=== PATIENT | female | born 1965 | race American Indian/Alaskan Native ===

== ENCOUNTER 2019-02-10 08:30 | Day surgery (SDC) | payer OTHER ==
[2019-02-10 09:05] VITALS: BMI 28.1
[2019-02-10] MEDS ORDERED: Lactated Ringer's 500 ML IV ONE (09:09)
[2019-02-10 09:35] VITALS: O2SAT 100
[2019-02-10] MEDS ORDERED: Midazolam 2 MG/2 ML VIAL ONE (10:55)
[2019-02-10] MEDS ORDERED: Propofol 10 mg/ml Inj (20 ML) ONE (10:56)
[2019-02-10 11:25] VITALS: RESP 17
[2019-02-10 11:41] VITALS: BP 125/68; PULSE 70; TEMP 96.9
== END 2019-02-10 13:54 | disposition home or self-care (01) ==
LOC: H.ENDO 08:30
PROVIDERS: ATTEND Internal Medicine Gastroenterology
DX: K29.70 Gastritis, unspecified, without bleeding (principal); K31.7 Polyp of stomach and duodenum; R12 Heartburn; E78.5 Hyperlipidemia, unspecified; I10 Essential (primary) hypertension; G47.30 Sleep apnea, unspecified; R06.83 Snoring
CPT/HCPCS: 43251; 88305; J2001; J2250; J2704; J7120

== ENCOUNTER 2019-02-24 07:21 | Day surgery (SDC) | payer OTHER ==
[2019-02-24] MEDS ORDERED: Lactated Ringer's 500 ML IV ONE (07:57)
[2019-02-24 08:05] VITALS: BMI 29.7
[2019-02-24 08:14] VITALS: PULSE 59
[2019-02-24] MEDS ORDERED: Propofol 10 mg/ml Inj (20 ML) ONE (09:52)
[2019-02-24 10:23] VITALS: TEMP 97
[2019-02-24 10:37] VITALS: BP 121/73; RESP 17; O2SAT 100
== END 2019-02-24 11:00 | disposition home or self-care (01) ==
LOC: H.ENDO 07:21
PROVIDERS: ATTEND Internal Medicine Gastroenterology
DX: Z12.11 Encounter for screening for malignant neoplasm of colon (principal); D12.5 Benign neoplasm of sigmoid colon; D12.7 Benign neoplasm of rectosigmoid junction; E78.5 Hyperlipidemia, unspecified; I10 Essential (primary) hypertension; D64.9 Anemia, unspecified
CPT/HCPCS: 45380; 88305; J2704; J7120